=== PATIENT | female | born 1970 | race Caucasian/White ===

== ENCOUNTER 2016-09-28 05:40 | Day surgery (SDC) | payer OTHER ==
[~2016-09-28] VITALS: Ht 160 cm; Wt 83.9 kg
[2016-09-28] MEDS ORDERED: PROPOFOL 200MG/ 20ML VIAL (DIPRIVAN) IV ONE (07:03)
[2016-09-28] MEDS ORDERED: CEFAZOLIN 2 GM IVPB PREMIX 50 ML IV ONE (07:03)
[2016-09-28] MEDS ORDERED: ONDANSETRON HCL 4 MG/2 ML VIAL IVP ONE ×2 (07:03)
[2016-09-28] MEDS ORDERED: LR 1,000 ML IV.SOLN IV ONE (07:03)
[2016-09-28] MEDS ORDERED: fentaNYL CITRATE/PF 100 MCG/2 ML AMP IVP ONE (07:03)
[2016-09-28] MEDS ORDERED: MIDAZOLAM HCL 5 MG/5 ML VIAL IVP ONE (07:03)
[2016-09-28] MEDS ORDERED: GLYCOPYRROLATE 0.2 MG/ML VIAL IJ ONE ×2 (07:03)
[2016-09-28] MEDS ORDERED: NS 1000 ML BAG IV ONE (07:03)
[2016-09-28] MEDS ORDERED: BUPIVACAINE /PF 0.25% 30 ML VIAL INJ ONE (07:03)
[2016-09-28] MEDS ORDERED: KETOROLAC TROMETHAMINE 30 MG VIAL IVP ONE ×2 (07:03)
[2016-09-28] MEDS ORDERED: ROCURONIUM BROMIDE 10 MG/ML (ZEMURON) IV ONE (07:03)
[2016-09-28] MEDS ORDERED: SEVOFLURANE 15 MIN GAS INH ONE (07:03)
[2016-09-28] MEDS ORDERED: NEOSTIGMINE METHYLSULFATE 1 MG/ML, 10 ML VIAL IVP ONE (07:03)
[2016-09-28] MEDS ORDERED: LR 1,000 ML IV SCH (08:01)
[2016-09-28] MEDS ORDERED: MEPERIDINE HCL/PF 25 MG/ML DISP.SYRIN IVP PRN ×2 (08:15)
[2016-09-28] MEDS ORDERED: HYDROmorphone 1 MG INJ. 1 MG/ML AMPUL IVP PRN (08:15)
[2016-09-28] MEDS ORDERED: KETOROLAC TROMETHAMINE 30 MG VIAL IVP PRN (08:15)
[2016-09-28] MEDS ORDERED: ONDANSETRON HCL 4 MG/2 ML VIAL IVP PRN ×2 (08:15→09:45)
[2016-09-28] MEDS ORDERED: HYDROmorphone 2 MG/ML VIAL IVP PRN ×2 (08:15)
[2016-09-28] MEDS ORDERED: OXYCODONE/ACETAMINOPHEN 5-325 TABLET PO PRN ×4 (09:45)
[2016-09-28] MEDS ORDERED: SIMETHICONE 80 MG TAB.CHEW PO PRN (09:45)
[2016-09-28] MEDS ORDERED: IBUPROFEN 800 MG TABLET PO PRN (09:45)
[2016-09-28] MEDS ORDERED: HYDROmorphone 1 MG INJ. 1 MG/ML AMPUL ONE (10:07)
[2016-09-28] MEDS ORDERED: MEPERIDINE HCL/PF 25 MG/ML DISP.SYRIN ONE (10:09)
[2016-09-28 11:20] VITALS: BP_SYST 138
[2016-09-28] MEDS: LR 1,000 ML IV SCH ×3 (12:51→22:45)
[2016-09-28 14:45] VITALS: BP_SYST 124
[2016-09-28 17:07] VITALS: BP_SYST 124
[2016-09-28 19:46] VITALS: BP_SYST 124
[2016-09-28] MEDS ORDERED: TEMAZEPAM 15 MG CAPSULE PO PRN (21:00)
[2016-09-28] MEDS ORDERED: SENNOSIDES/DOCUSATE SODIUM 1 TAB TABLET(SENOKOT-S) PO PRN ×2 (21:00)
[2016-09-29 00:28] VITALS: BP_SYST 106
[2016-09-29 04:49] VITALS: BP_SYST 109
[2016-09-29 06:55] LABS: HEMATOCRIT 33.2 % (36-48); HEMOGLOBIN 10.8 g/dL (12.0-16.0)
[2016-09-29 08:00] VITALS: BP_SYST 114
== END 2016-09-29 11:25 | disposition home or self-care (01) ==
LOC: SDS 05:40 → SMU 05:40 → SDS 09-29 11:25
PROVIDERS: ATTEND Obstetrics & Gynecology
DX: N70.11 Chronic salpingitis (principal); N73.6 Female pelvic peritoneal adhesions (postinfective); Z53.31 Laparoscopic surgical procedure converted to open procedure; N91.2 Amenorrhea, unspecified; L03.90 Cellulitis, unspecified; M54.12 Radiculopathy, cervical region; N83.299 Other ovarian cyst, unspecified side; E78.5 Hyperlipidemia, unspecified; A63.0 Anogenital (venereal) warts; E03.9 Hypothyroidism, unspecified; Z83.3 Family history of diabetes mellitus; Z80.3 Family history of malignant neoplasm of breast
CPT/HCPCS: 36415 ×2; 58720; 85018; 86886; 86900; 86901; 88304; C1727; J0690; J1170; J1885; J2175; J2250; J2405; J2704; J2710; J3010; J3490 ×2; J7030; J7120; J7042